=== PATIENT | male | born 1955 | race Caucasian/White ===

== ENCOUNTER → 2023-08-03 | Outpatient (CLI) | payer MEDICARE, OTHER ==
[2023-08-03 16:11] LABS: ALT 24 U/L (10-49); AST 25 U/L (14-35); Albumin 4.2 g/dL (3.8-4.9); Albumin/Globulin Ratio 1.91 Ratio (1.60-3.17); Alkaline Phosphatase 69 U/L (41-126); BUN/Creat Ratio 18.44 Ratio (12.00-20.00); Blood Urea Nitrogen 16.6 mg/dL (9.0-27.0); Calcium 10.1 mg/dL (8.7-10.3); Carbon Dioxide 27.2 mmol/L (21.6-31.8); Chloride 103 mmol/L (96-109); Chol/HDL Ratio 2.54 Ratio; Globulin 2.2 g/dL (1.6-3.3); Glucose 131 mg/dL (70-110); LDL Cholesterol,Calculated 81.4 mg/dL (0.0-131.0); Sodium 139 mmol/L (135-145); Total Bilirubin 0.6 mg/dL (0.3-1.2); Total Protein 6.4 g/dL (6.2-8.2); VLDL Calculation 14.46 mg/dL (5.00-40.00)
== END | disposition home or self-care (01) ==
LOC: LABWHC1 10:40
PROVIDERS: ATTEND Internal Medicine Interventional Cardiology
DX: E78.2 Mixed hyperlipidemia (principal)
CPT/HCPCS: 36415; 80053; 80061

== ENCOUNTER → 2024-09-11 | Outpatient (CLI) | payer MEDICARE ==
[2024-09-11 10:00] LABS: African American GFR (CKD) >90 (>60 ml/min/1.73 sqM); Blood Urea Nitrogen 17 mg/dL (9-20); Non-African American GFR(CKD) >90 (>60 ml/min/1.73 sqM)
--- NOTE | 2024-09-13 11:49 | CT ---
EXAMINATION TYPE: CT abdomen w con CT DLP: 1385 mGycm, Automated exposure control for dose reduction was used. DATE OF EXAM: 09/11/2024 10:23 AM COMPARISON: None CLINICAL INDICATION:Male, 69 years old with history of E11.9 TYPE 2 DIABETES MELLITUS WITHOUT COMPLIC ATIONS; High blood pressure, family history of pancreas ca TECHNIQUE: Multiphase CT of the abdomen following the administration of 100 cc of Isovue 300 IV cont rast material and oral contrast. Coronal and sagittal reformats were performed. FINDINGS: LOWER CHEST: Unremarkable ABDOMEN LIVER: Diffuse left hepatic lobe subcentimeter hypodense foci of without enhancement most consistent with cysts. Mildly enlarged measuring 19.3 cm in CC dimension. GALLBLADDER AND BILE DUCTS: Unremarkable. PANCREAS: No arterial enhancing lesions identified. There is beaded pancreatic ductal dilatation masood uring up to 8 mm in the pancreatic neck (series 8, image 33). No definitive ductal dilatation at the pancreatic head. Subtle surrounding fat stranding involving the body and neck of the pancreas. No amira rounding organized fluid collections. No pancreatic calcifications. No peripancreatic vascular compli cations identified. SPLEEN: Unremarkable. ADRENAL GLANDS: Unremarkable. KIDNEYS AND URETERS: No evidence of hydronephrosis or renal calculus. The kidneys enhance symmetrical ly. Right renal inferior pole cortical cyst measuring up to 2.5 cm. STOMACH AND BOWEL: Small hiatal hernia, duodenum is unremarkable. Enteric contrast reaches the mid sm all bowel. No focal bowel wall thickening. Mild colonic sonogram. No evidence of bowel obstruction. PERITONEUM: No evidence of pneumoperitoneum or free fluid. VASCULATURE: No evidence of aortic aneurysm. MUSCULOSKELETAL: No acute osseous abnormalities. Mild levocurvature of the lumbar spine with apex at L4. Moderate multilevel degenerative disc disease. 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 No ag gressive osseous lesion. LYMPH NODES: No evidence for lymphadenopathy. SOFT TISSUE/ABDOMINAL WALL: Unremarkable IMPRESSION: 1. Subtle fat stranding involving the pancreatic neck and body which could be seen with pancreatitis. No surrounding organized fluid collection. Correlate with lipase values. 2. Nonspecific beaded main pancreatic ductal dilatation without dilatation at the pancreatic head. No arterial enhancing lesion identified. Further evaluation with MR abdomen/MRCP is recommended to rule out underlying lesion. 3. Mild hepatomegaly. [facility], , 09/13/2024 11:47 AM
== END | disposition home or self-care (01) ==
LOC: RADCTMAIN 09:15
PROVIDERS: ATTEND Family Medicine
DX: E11.9 Type 2 diabetes mellitus without complications (principal); R16.0 Hepatomegaly, not elsewhere classified; Z80.0 Family history of malignant neoplasm of digestive organs
CPT/HCPCS: 82565; 84520; 74160; 36415; Q9967

== ENCOUNTER → 2024-09-18 | Outpatient (CLI) | payer MEDICARE ==
--- NOTE | 2024-09-18 09:49 | MR ---
EXAMINATION TYPE: MR MRCP DATE OF EXAM: 09/18/2024 9:33 AM COMPARISON: CT abdomen one week earlier. CLINICAL INDICATION: Male, 69 years old with history of Z80.8 FAMILY HISTORY OF MALIGNANT NEOPLASM OF ORGAN, Abnormal CT, Elevated Blood sugar, family hx pancreatic cancer IV Contrast: cc (None if empty) Standard multiplanar, multisequence MRI departmental protocol Multiplanar, multisequence images of the abdomen were acquired without contrast. Diffusion weighted i maging was performed. Thin and thick slice MRCP imaging is performed on MRI scanner. FINDINGS: Exam is suboptimal as there is motion artifact. Patient unable to hold breath. Liver/gallbladder/pancreas/biliary system: Liver is normal in size. There are a few tiny subcentimete r thin-walled cysts in the left hepatic lobe. No internal gallstones are identified. Persistent sligh t edematous diffuse prominence of the pancreas. MRCP imaging shows no biliary dilatation. There is so me asymmetric focal prominence of the pancreatic duct in the pancreatic head measuring up to 5 mm. MR CP images are suboptimal due to technique and patient motion. Remainder of the pancreatic duct is not well seen. Areas of narrowing or strictures cannot be excluded. There appear to be areas of dilatati on in the body on CT and MRI images. Other: Small size hiatal hernia is redemonstrated. Persistent asymmetric thickening of the left adren al gland with signal dropout consistent with benign lipid rich adenoma. Persistent 2.0 cm thin-walled cyst in the lower pole of the right kidney. No hydronephrosis seen bilaterally. No abnormal bowel di latation. No AAA. Multilevel spurring and disc space narrowing in the thoracolumbar spine. IMPRESSION: Suboptimal study. Suspect acute on chronic pancreatitis. There are areas of significant narrowing or stricturing and dilatation throughout the pancreatic duct. MRI findings show acute on chronic pancrea titis similar to recent CT. [facility], , 09/18/2024 9:46 AM
== END | disposition home or self-care (01) ==
LOC: RADMRIMAIN 08:34
PROVIDERS: ATTEND Internal Medicine
DX: K85.90 Acute pancreatitis without necrosis or infection, unspecified (principal); Z80.8 Family history of malignant neoplasm of other organs or systems; Z80.0 Family history of malignant neoplasm of digestive organs; I10 Essential (primary) hypertension; E78.5 Hyperlipidemia, unspecified; I48.91 Unspecified atrial fibrillation; E11.9 Type 2 diabetes mellitus without complications
CPT/HCPCS: 74181

== ENCOUNTER → 2025-03-03 | Outpatient (CLI) | payer MEDICARE ==
[2025-03-03 14:08] LABS: African American GFR (CKD) >90 (>60 ml/min/1.73 sqM); Blood Urea Nitrogen 21 mg/dL (9-20); Non-African American GFR(CKD) >90 (>60 ml/min/1.73 sqM)
--- NOTE | 2025-03-03 16:48 | CT ---
EXAMINATION TYPE: CT abdomen pelvis w con DATE OF EXAM: 03/03/2025 3:30 PM COMPARISON: 09/11/2024 CLINICAL INDICATION: Male, 69 years old with history of R10.84 Abd pain, R10.9 L Flank pain, R63.4 wt loss, stomach pain and bilateral flank pain TECHNIQUE: Axial images were obtained from above the diaphragm to the pubic rami in the axial plane a t 5 mm thick sections. Reconstructed images are reviewed on the computer in the coronal plane. CONTRAST: 100ml mL of Isovue 300. Study performed with Oral Contrast DLP: 1328.5 mGycm, Automated exposure control for dose reduction was used. FINDINGS: Limited CT sections are obtained the lung bases. The lung bases are clear. CT ABDOMEN: Liver: Normal Spleen: Normal Pancreas: There is a 3.6 cm hypodense area within the junction of the head and body of the pancreas. This may have extension towards the tail. Underlying mass should be considered. This has increased in size over the interval. Adrenal glands: The adrenal glands are normal. Gallbladder: Normal Kidneys: No masses are evident. No hydronephrosis is present. There is a 2.2 cm cyst at the inferio r pole right kidney Delayed images were obtained through the kidneys, which remain unremarkable. Aorta: Vascular calcification is within the aorta. Inferior vena cava: Normal. CT PELVIS: Loops of bowel within the abdomen and pelvis are normal. Diverticular changes are within the sigmoid colon. Oral contrast extends to the distal small bowel. There are loops of bowel which are incompl etely distended or lack oral contrast limiting their evaluation. Appendix: Normal as visualized. Urinary bladder: Normal. Genitourinary structures: Prostate contains calcification. Prostate is enlarged. Osseous structures: No suspicious lytic or sclerotic lesions. IMPRESSION: 1. A 3.6 cm hypodense area within the junction of the head and body of the pancreas which may has so me extension towards the tail. This has enlarged from prior study and is suspicious for a mass. Pancr eatitis with edema is considered less likely. A [place] critical message alert has been initiated for Keenan Waters MD via the [facility] System on 03/03/2025 4:45 PM. This message alert has been sent to Keenan Waters MD via the preferences provided by the clinician for the receipt of Radiology Critical Findi ngs. Message ID [id number]. [facility], , 03/03/2025 4:46 PM
== END | disposition home or self-care (01) ==
LOC: RADCTMAIN 13:30
PROVIDERS: ATTEND Family Medicine
DX: R10.84 Generalized abdominal pain (principal); R10.9 Unspecified abdominal pain; R63.4 Abnormal weight loss; E11.9 Type 2 diabetes mellitus without complications; Z79.84 Long term (current) use of oral hypoglycemic drugs
CPT/HCPCS: 82565; 84520; 74177; 36415; Q9967

== ENCOUNTER → 2025-03-07 | Outpatient (CLI) | payer MEDICARE ==
[2025-03-07 11:20] LABS: African American GFR (CKD) >90 (>60 ml/min/1.73 sqM); Blood Urea Nitrogen 27 mg/dL (9-20); Non-African American GFR(CKD) >90 (>60 ml/min/1.73 sqM)
--- NOTE | 2025-03-07 12:13 | CT ---
EXAMINATION TYPE: CT chest w con DATE OF EXAM: 03/07/2025 11:37 AM COMPARISON: CT 03/03/2025. CLINICAL INDICATION: Male, 69 years old with history of I48.91 a fib; PHH, a-fib/ seen mass on pancre as TECHNIQUE: Multiple axial images were obtained through the chest. Sagittal and coronal reformats were created for review. MIP was performed on a separate workstation. Contrast used:100 mL of Isovue 300 with IV Contrast (None if empty) Oral contrast used: (None if empty) CT DLP: 479.2 mGycm, Automated exposure control for dose reduction was used. FINDINGS: LUNGS/ PLEURA: No focal consolidation, pneumothorax or pleural effusion. No There is a 2 mm right mi ddle lobe nodule series 2 image 42. 3 mm nodule right lung base series 2 image 57. AIRWAY: Patent and unremarkable. HEART: Size within normal limits. No significant coronary artery calcifications. MEDIASTINUM: No gross evidence of adenopathy. VASCULATURE: No aortic aneurysm. MUSCULOSKELETAL: Moderate disc degeneration changes are present throughout the thoracolumbar spine se condary to osteophyte formation and facet joint arthropathy. Bridging syndesmophytes are seen over th e lower thoracic spine along the anterior longitudinal ligament. SOFT TISSUES/LYMPH NODES: Unremarkable. LOWER NECK: No significant findings. UPPER ABDOMEN: Pancreatic fullness/mass at the neck body junction measuring at least 3.8 x 2.9 cm. IMPRESSION: 1. No evidence for lymphadenopathy. Few scattered sub-4 mm nodules. 2. Pancreatic body/neck mass again redemonstrated. 3. Diffuse hepatic skeletal hyperostosis. [facility], , 03/07/2025 12:11 PM
== END | disposition home or self-care (01) ==
LOC: RADCTMAIN 10:34
PROVIDERS: ATTEND Internal Medicine
DX: K86.9 Disease of pancreas, unspecified (principal); I48.91 Unspecified atrial fibrillation
CPT/HCPCS: 82565; 84520; 71260; 36415; Q9967